=== PATIENT | female | born 1940 | race Native Hawaiian/Other Pacific Islander ===

== ENCOUNTER 2018-09-02 11:52 | Outpatient (CLI) | payer MEDICARE, OTHER | END 2018-09-02 11:53 | disposition home or self-care (01) | LOC: C.MAMMO 11:53 | DX: Z12.31 Encounter for screening mammogram for malignant neoplasm of breast (principal) ==

== ENCOUNTER 2018-11-09 07:09 | Outpatient (CLI) | payer MEDICARE, OTHER | END 2018-11-09 07:10 | disposition home or self-care (01) | LOC: C.CARD 07:09 ==